=== PATIENT | male | born 1940 | race African-American/Black ===

== ENCOUNTER 2020-03-16 19:39 | Inpatient (IN) | payer BC, SELFPAY ==
[~2020-03-16] VITALS: Ht 172.7 cm; Wt 71.3 kg
[2020-03-16 19:40] VITALS: BP_SYST 100
[2020-03-16] MEDS ORDERED: NACL 0.9% 1,000 ML IV ONE (20:15)
[2020-03-16 20:38] LABS: MEAN CORPUSCULAR HEMOGLOBIN 29 pg (27-31); MEAN CORPUSCULAR HGB CONC 34 % (32-36); MEAN CORPUSCULAR VOLUME 85 fL (79.0-98.0); PLATELET COUNT (AUTO) 196 K/uL (130-430); RED BLOOD CELL COUNT(AUTO) 2.28 MIL/uL (4.2-6.2); RED CELL DISTRIBUTION WIDTH 19.9 % (9.0-15.0)
[2020-03-16 20:44] LABS: BILIRUBIN,URINE NEGATIVE (NEGATIVE); BLOOD, URINE NEGATIVE (NEGATIVE); CLARITY/URINE CLEAR (CLEAR); COLOR,URINE YELLOW (YELLOW); GLUCOSE,URINE NEGATIVE (NEGATIVE); KETONES,URINE NEGATIVE (NEGATIVE); LEUKOCYTE ESTERASE ,URINE NEGATIVE (NEGATIVE); NITRITE, URINE NEGATIVE (NEGATIVE); PROTEIN URINE NEGATIVE (NEGATIVE)
[2020-03-16 20:46] LABS: ANION GAP 10 (5-15); CHLORIDE 91 mmol/L (98-107); CREATININE 2.24 mg/dL (0.55-1.30); GLUCOSE 163 mg/dL (70-99); POTASSIUM 3.1 mmol/L (3.5-5.1); SODIUM SERUM 130 mmol/L (136-145); UREA NITROGEN, BLOOD 63 mg/dL (8-21)
[2020-03-16 20:53] LABS: HEMATOCRIT 19.3 % (36-54); HEMOGLOBIN 6.5 g/dL (14.0-18.0)
[2020-03-16 20:55] LABS: ALANINE AMINOTRANSFERASE 12 U/L (12-78); ALBUMIN 3.1 g/dL (3.4-4.8); ASPARTATE AMINOTRANSFERASE 18 U/L (10-37); TOTAL BILIRUBIN 0.5 mg/dL (0.0-1.0)
[2020-03-16] MEDS ORDERED: PANTOPRAZOLE SODIUM 40 MG/VIAL (PROTONIX) IVP ONE (21:00)
[2020-03-16 21:02] LABS: BAND % (MANUAL) 0 % (0-6); BASOPHILS % (MANUAL) 0 % (0-2); EOSINOPHILS % (MANUAL) 0 % (0-7); LYMPHOCYTES % (MANUAL) 19 % (20-46); MONOCYTES % (MANUAL) 14 % (0-11)
[2020-03-16 21:14] LABS: INR 1.2 (0.80-1.20); PROTHROMBIN TIME 11.9 SECS (9.5-12.5)
[2020-03-16] MEDS ORDERED: POTASSIUM CHLORIDE 20 MEQ/PKT PACKET PO ONE (21:15)
[2020-03-16] MEDS ORDERED: ISO10 PO (22:00)
[2020-03-16] MEDS ORDERED: CLOP75TA32 PO (22:00)
[2020-03-16] MEDS ORDERED: FOLI-43 PO (22:00)
[2020-03-16] MEDS ORDERED: FURO-149 PO (22:00)
[2020-03-16] MEDS ORDERED: METO2.5T6 PO (22:00)
[2020-03-16] MEDS ORDERED: TIMO5DRO15 EACH EYE (22:00)
[2020-03-16] MEDS ORDERED: POTA20TA83 PO (22:00)
[2020-03-16] MEDS ORDERED: ATOR10TA68 PO (22:00)
[2020-03-16] MEDS ORDERED: INSULIN REGULAR, HUMAN 100 UNITS/ML, 10 ML VIAL (humuLIN R) SUBCUT PRN (22:15)
[2020-03-16 23:22] VITALS: BP_SYST 102
[2020-03-16] MEDS: KCL 20 mEq in D5/0.45NS 1000mL 1,000 ML IV SCH (23:48)
[2020-03-17] VITALS (7 sets, daily range): BP systolic 94–114
[2020-03-17 06:24] LABS: BASOPHILS % (AUTO) 0.6 % (0.0-2.0); EOSINOPHILS # (AUTO) 0.1 K/uL (0.0-0.4); EOSINOPHILS % (AUTO) 1.5 % (0.0-4.0); HEMATOCRIT 24.3 % (36-54); LYMPHOCYTES # (AUTO) 0.5 K/uL (1.0-5.5); LYMPHOCYTES % (AUTO) 13.4 % (20.5-51.5); MEAN CORPUSCULAR HEMOGLOBIN 28 pg (27-31); MEAN CORPUSCULAR HGB CONC 33 % (32-36); MEAN CORPUSCULAR VOLUME 86 fL (79.0-98.0); MONOCYTES # (AUTO) 0.7 K/uL (0.0-1.0); MONOCYTES % (AUTO) 19.7 % (1.7-9.3); NEUTROPHILS # (AUTO) 2.2 K/uL (1.8-7.7); NEUTROPHILS % (AUTO) 64.8 % (40.0-70.0); PLATELET COUNT (AUTO) 192 K/uL (130-430); RED BLOOD CELL COUNT(AUTO) 2.82 MIL/uL (4.2-6.2); RED CELL DISTRIBUTION WIDTH 19.3 % (9.0-15.0); WHITE BLOOD COUNT (AUTO) 3.5 K/uL (4.8-10.8)
[2020-03-17 07:12] LABS: ALANINE AMINOTRANSFERASE 12 U/L (12-78); ALBUMIN 2.8 g/dL (3.4-4.8); ANION GAP 8 (5-15); ASPARTATE AMINOTRANSFERASE 20 U/L (10-37); CALCIUM 8.6 mg/dL (8.4-11.0); CHLORIDE 97 mmol/L (98-107); GLUCOSE 118 mg/dL (70-99); POTASSIUM 3.3 mmol/L (3.5-5.1); SODIUM SERUM 136 mmol/L (136-145); TOTAL BILIRUBIN 0.6 mg/dL (0.0-1.0); UREA NITROGEN, BLOOD 58 mg/dL (8-21)
[2020-03-17] MEDS: KCL 20 mEq in D5/0.45NS 1000mL 1,000 ML IV SCH (16:10)
[2020-03-17] MEDS ORDERED: ATORVASTATIN 10 MG TABLET PO SCH (21:15)
[2020-03-18 01:05] VITALS: BP_SYST 103
[2020-03-18 05:10] VITALS: BP_SYST 104
[2020-03-18 06:48] LABS: BASOPHILS % (AUTO) 0.6 % (0.0-2.0); EOSINOPHILS # (AUTO) 0.1 K/uL (0.0-0.4); EOSINOPHILS % (AUTO) 2.5 % (0.0-4.0); HEMATOCRIT 25.6 % (36-54); HEMOGLOBIN 8.4 g/dL (14.0-18.0); LYMPHOCYTES # (AUTO) 0.4 K/uL (1.0-5.5); LYMPHOCYTES % (AUTO) 12.7 % (20.5-51.5); MEAN CORPUSCULAR HEMOGLOBIN 29 pg (27-31); MEAN CORPUSCULAR HGB CONC 33 % (32-36); MEAN CORPUSCULAR VOLUME 87 fL (79.0-98.0); MONOCYTES # (AUTO) 0.4 K/uL (0.0-1.0); MONOCYTES % (AUTO) 12.2 % (1.7-9.3); NEUTROPHILS # (AUTO) 2.4 K/uL (1.8-7.7); PLATELET COUNT (AUTO) 189 K/uL (130-430); RED BLOOD CELL COUNT(AUTO) 2.95 MIL/uL (4.2-6.2); RED CELL DISTRIBUTION WIDTH 18.4 % (9.0-15.0); WHITE BLOOD COUNT (AUTO) 3.4 K/uL (4.8-10.8)
[2020-03-18 07:12] LABS: CALCIUM 8.7 mg/dL (8.4-11.0); CHLORIDE 100 mmol/L (98-107); CREATININE 1.28 mg/dL (0.55-1.30); GLUCOSE 94 mg/dL (70-99); POTASSIUM 3.3 mmol/L (3.5-5.1); SODIUM SERUM 136 mmol/L (136-145); UREA NITROGEN, BLOOD 35 mg/dL (8-21)
[2020-03-18 07:45] LABS: ANION GAP 8 (5-15)
[2020-03-18 08:05] VITALS: BP_SYST 112
[2020-03-18 08:05] LABS: TOTAL IRON BIND. CAPACITY 313 ug/dL (250-450)
[2020-03-18] MEDS ORDERED: POTASSIUM CHLORIDE 20 MEQ TAB.PRT.SR PO SCH (09:00)
[2020-03-18] MEDS ORDERED: FUROSEMIDE 40 MG TABLET PO SCH (09:00)
[2020-03-18] MEDS ORDERED: FOLIC ACID 1 MG TABLET PO SCH (09:00)
[2020-03-18] MEDS ORDERED: CLOPIDOGREL BISULFATE 75 MG TABLET PO SCH (09:00)
[2020-03-18] MEDS ORDERED: metOLazone 2.5 MG TABLET PO SCH (09:00)
[2020-03-18] MEDS ORDERED: TIMOLOL MALEATE 0.25% OPHTHALMIC DROPS 5 ML OP SCH (09:00)
[2020-03-18] MEDS ORDERED: ISOSORBIDE DINITRATE 10 MG TABLET (ISORDIL) PO SCH (09:00)
[2020-03-18 11:31] VITALS: BP_SYST 141
[2020-03-18 15:31] VITALS: BP_SYST 106
[2020-03-18 17:54] VITALS: BP_SYST 106
[2020-03-18] MEDS ORDERED: POTASSIUM CHLORIDE 20 MEQ TAB.PRT.SR PO ONE (18:00)
[2020-03-19 07:06] LABS: FERRITIN 53 ng/mL (30-400); FOLATE (FOLIC ACID) >20.0 ng/mL (>3.0)
== END 2020-03-18 20:40 | disposition home or self-care (01) | DRG 812 ==
LOC: SED 19:39 → STU 22:13
PROVIDERS: ADMIT Family Medicine; ATTEND Family Medicine
PROC: 30233N1 Transfusion of Nonautologous Red Blood Cells into Peripheral Vein, Percutaneous Approach (ICD-10-PCS; principal; 2020-03-17)
DX: D64.9 Anemia, unspecified (principal); E44.0 Moderate protein-calorie malnutrition; R18.8 Other ascites; I13.0 Hypertensive heart and chronic kidney disease with heart failure and stage 1 through stage 4 chronic kidney disease, or unspecified chronic kidney disease; I50.22 Chronic systolic (congestive) heart failure; I25.10 Atherosclerotic heart disease of native coronary artery without angina pectoris; N40.0 Benign prostatic hyperplasia without lower urinary tract symptoms; N18.9 Chronic kidney disease, unspecified; E11.22 Type 2 diabetes mellitus with diabetic chronic kidney disease; Z20.828 Contact with and (suspected) exposure to other viral communicable diseases; K29.50 Unspecified chronic gastritis without bleeding; Z95.0 Presence of cardiac pacemaker; Z95.1 Presence of aortocoronary bypass graft; Z68.23 Body mass index [BMI] 23.0-23.9, adult
CPT/HCPCS: 36415; 36430; 70450-TC; 71045; 76700-TC; 80048; 80053; 81003; 82607; 82728; 82746; 82962; 83540-TC; 83550-TC; 83735-TC; 83880; 84484; 85007; 85025; 85027; 85610-TC; 86886; 86900; 86901; 86920; 93005; 96361; 96374; 99291; C9113; G0378; J1815; J7050; P9021

== ENCOUNTER 2021-12-04 18:05 | Inpatient (IN) | payer BC ==
[~2021-12-04] VITALS: Ht 172.7 cm; Wt 56.4 kg
[~2021-12-04 18:05] MED LIST: ATOR10TA68 PO; CLOP75TA32 PO; FOLI-43 PO; FURO-149 PO; ISO10 PO; METO2.5T6 PO; POTA-197 PO; TIMO5DRO15 EACH EYE
[2021-12-04 18:09] VITALS: BP_SYST 115
--- NOTE | 2021-12-04 18:14 | NUR ---
PT TRIAGED AND ACCOMPANIED BY AMBULANCE EMT'SJASPAL FROM DRIVING TO HOSPITAL FOR CP LEFT SIDED NON-RADIATING, GIVEN ASA 324MG PO EN ROUTE, NO APPARANT DISTRESS ON ARRIVAL. VSS
[2021-12-04] MEDS ORDERED: NITROGLYCERIN 1 INCH (GM) OINT. TD ONE (18:45)
[2021-12-04] MEDS ORDERED: NITROGLYCERIN 0.4 MG TAB.SUBL SL ONE ×2 (18:45→22:06)
[2021-12-04 19:07] LABS: MEAN CORPUSCULAR HEMOGLOBIN 23 pg (27-31); MEAN CORPUSCULAR HGB CONC 32 % (32-36); MEAN CORPUSCULAR VOLUME 72 fL (79.0-98.0); PLATELET COUNT (AUTO) 148 K/uL (130-430); RED BLOOD CELL COUNT(AUTO) 2.95 MIL/uL (4.2-6.2); RED CELL DISTRIBUTION WIDTH 20.2 % (9.0-15.0)
[2021-12-04 19:23] LABS: HEMOGLOBIN 6.8 g/dL (14.0-18.0)
[2021-12-04 19:24] LABS: HEMATOCRIT 21.3 % (36-54)
[2021-12-04 19:52] LABS: ANION GAP 7 (5-15); CALCIUM 8.7 mg/dL (8.4-11.0); CHLORIDE 94 mmol/L (98-107); CREATININE 1.68 mg/dL (0.55-1.30); GLUCOSE 107 mg/dL (70-99); POTASSIUM 3.1 mmol/L (3.5-5.1); SODIUM SERUM 131 mmol/L (136-145); UREA NITROGEN, BLOOD 53 mg/dL (8-21)
[2021-12-04 20:02] LABS: ALANINE AMINOTRANSFERASE 19 U/L (12-78); ALBUMIN 2.5 g/dL (3.4-4.8); ASPARTATE AMINOTRANSFERASE 32 U/L (10-37); TOTAL BILIRUBIN 0.6 mg/dL (0.0-1.0)
[2021-12-04 20:39] LABS: INR 1.3 (0.80-1.20); PROTHROMBIN TIME 12.5 SECS (9.5-12.5)
[2021-12-04] MEDS ORDERED: NITROGLYCERIN 1 INCH (GM) OINT. ONE (22:07)
--- NOTE | 2021-12-04 22:18 | NUR ---
Nitroglycerin order held due to SBP of 105 and HR 60 at this time. Pt denies any active chest pain at this moment.
[2021-12-04 22:19] LABS: BAND % (MANUAL) 12 % (0-6); LYMPHOCYTES % (MANUAL) 19 % (20-46)
[2021-12-04 22:20] LABS: ATYPICAL LYMPHOCYTES % 6 % (0-0); BASOPHILS % (MANUAL) 0 % (0-2); EOSINOPHILS % (MANUAL) 4 % (0-7); MONOCYTES % (MANUAL) 7 % (0-11)
--- NOTE | 2021-12-04 22:25 | NUR ---
Pt placed in room 2. Connected to monitor. Denies any chest pain at this time.
[2021-12-04] MEDS ORDERED: PANTOPRAZOLE SODIUM 80 MG in NS 100 ML IVP ONE (22:30)
[2021-12-04] MEDS ORDERED: HYDROcodone/ACETAMIN 10-325 MG TAB PO ONE (22:30)
--- NOTE | 2021-12-04 22:30 | NUR ---
# 20 gauge angiocath placed to R FOREARM. Use of asceptic technique. Opsite placed over site. Blood return noted. Flushed with 10 cc of normal saline. No evidence of infiltration noted. Patient tolerated well.
--- NOTE | 2021-12-04 22:41 | NUR ---
Admit bed requested Patient will be admitted to care of Dr. Curry. Admitted to Tele unit. Diagnosis: GI BLEED Inpatient (Yes or No) Y Observation (Yes or No) Y Orientation concerns or request close to nursing station (Yes or No) N Covid Status: From Home (Yes or if No enter name of facility): [facility] Med Rec Completed (Yes of No): UTO
[2021-12-04] MEDS ORDERED: ONDANSETRON HCL 4 MG/2 ML VIAL IVP PRN (22:45)
[2021-12-04] MEDS ORDERED: KCL 20 mEq in NS 1000 mL 1,000 ML IV ONE (22:45)
[2021-12-04] MEDS ORDERED: PANTOPRAZOLE SODIUM 40 MG/VIAL (PROTONIX) ONE (23:06)
[2021-12-05] MEDS ORDERED: PANTOPRAZOLE SODIUM 40 MG/VIAL (PROTONIX) ONE ×3 (00:31→20:26)
[2021-12-05] MEDS: PANTOPRAZOLE SODIUM 40 MG in NS 50 ML IV SCH ×6 (00:31→20:40)
--- NOTE | 2021-12-05 01:00 | NUR ---
Patient will be admitted to care of MD Marion. Admitted to TELE unit. Will go to room 114A. Complete and up to date summary report printed. SBAR report given at bedside to receiving CORRY Johansen with opportunity for questions. at bedside during admit.
[2021-12-05] MEDS ORDERED: KCL 20 mEq in NS 1000 mL 1,000 ML IV ONE (01:01)
[2021-12-05 01:08] VITALS: BP_SYST 83; BP_SYST 92
--- NOTE | 2021-12-05 01:08 | NUR ---
ADMISSION: The patient, PIYUSH OROPEZA, 81 y/o, M admitted by ANNIKA STREET MD, was given written information regarding hospital policies, unit procedures and contact persons. Valuables were checked and DOCUMENTED.
--- NOTE | 2021-12-05 02:16 | NUR ---
INITIAL NOTE AT INITIAL ASSESSMENT, PATIENT IS RESTING IN BED, STABLE, NO SIGNS OF RESPIRATORY DISTRESS. PATIENT VERBALIZES NO PAIN. IS AT BEDSIDE. PLAN OF CARE FOR THE EVENING IS COMMUNICATED WITH THE PATIENT AND HIS AT BEDSIDE. PATIENT DEMONSTRATES BACK CORRECT USAGE OF CALL LIGHT AT THIS TIME. BED IS LOCKED, ALARMED, AND AT THE LOWEST LEVEL. FALL AND SAFETY PRECAUTIONS WILL BE IN PLACE THROUGHOUT THE SHIFT.
--- NOTE | 2021-12-05 03:41 | NUR ---
CONSULTATION PAGED/CALLED Reason for Consultation: GI BLEED Person Who was Notified: FALLON Consulting Physician: DR.SHARMA SARMIENTO FOR [facility] Specialty: GI Ordering Physician:
--- NOTE | 2021-12-05 04:50 | NUR ---
BT INITIATION: Consent signed per PATIENT'S (DUE TO PATIENT'S IMPAIRED VISION, UNABLE TO SIGN) agreeing to administration of blood. Blood has been type and crossmatched. Blood sent from blood bank. Information on unit of blood checked against patient wristband at bedside by two nurses. All information matches. Patient or responsible green party informed of potential complications associated with blood transfusion. Informed of possible transfusion reaction symptoms. Aware of need to notify nurse at once of itching, shortness of breath, flushing, feeling of impending doom, or other symptoms not previously present. Vital signs taken within 5 minutes prior to initiation of transfusion. RN will remain with patient for first 15 minutes of transfusion at which time vital signs will be re-assessed.
--- NOTE | 2021-12-05 06:40 | NUR ---
PATIENT REFUSING SECOND BLOOD TRANSFUSION UNTIL 1 DAY FROM TRANSFUSION PATIENT VERBALIZES HE GETS "SCROTAL EDEMA AND FLUID OVERLOAD" IF HE GETS MORE THAN ONE BLOOD TRANSFUSION WITHIN A DAY, HE IS REQUESTING TO HAVE HIS NEXT BLOOD TRANSFUSION AFTER 24 HOURS. WILL ENDORSE TO AM NURSE. BLOOD BANK HAS VERIFIED THAT BLOOD WILL NOT UNTIL 12/11/21.
--- NOTE | 2021-12-05 06:45 | NUR ---
CLOSING NOTE PATIENT TOLERATED BLOOD TRANSFUSION WELL. HE SLEPT WELL, NO CHEST PAIN OR PALPITATIONS NOTED. AT THIS TIME, HE IS RESTING IN BED, STABLE, NO SIGNS OF RESPIRATORY DISTRESS. CALL LIGHT IS WITHIN REACH. BED IS LOCKED, ALARMED, AND AT THE LOWEST LEVEL. FALL AND SAFETY PRECAUTIONS HAVE BEEN IN PLACE THROUGHOUT THE SHIFT. WILL CONTINUE TO MONITOR UNTIL SHIFT REPORT IS GIVEN AT BEDSIDE TO AM NURSE.
[2021-12-05 07:25] VITALS: BP_SYST 101
[2021-12-05 09:28] LABS: BASOPHILS % (AUTO) 0.8 % (0.0-2.0); HEMATOCRIT 23.7 % (36-54); HEMOGLOBIN 7.7 g/dL (14.0-18.0); LYMPHOCYTES # (AUTO) 0.3 K/uL (1.0-5.5); LYMPHOCYTES % (AUTO) 17.7 % (20.5-51.5); MEAN CORPUSCULAR HEMOGLOBIN 24 pg (27-31); MEAN CORPUSCULAR HGB CONC 33 % (32-36); MEAN CORPUSCULAR VOLUME 75 fL (79.0-98.0); MONOCYTES # (AUTO) 0.3 K/uL (0.0-1.0); MONOCYTES % (AUTO) 18.6 % (1.7-9.3); PLATELET COUNT (AUTO) 147 K/uL (130-430); RED BLOOD CELL COUNT(AUTO) 3.18 MIL/uL (4.2-6.2); RED CELL DISTRIBUTION WIDTH 21.8 % (9.0-15.0)
[2021-12-05 09:41] LABS: ANION GAP 6 (5-15); CALCIUM 8.4 mg/dL (8.4-11.0); CHLORIDE 98 mmol/L (98-107); CREATININE 1.61 mg/dL (0.55-1.30); GLUCOSE 82 mg/dL (70-99); POTASSIUM 3.5 mmol/L (3.5-5.1); SODIUM SERUM 133 mmol/L (136-145); UREA NITROGEN, BLOOD 52 mg/dL (8-21)
[2021-12-05 11:25] LABS: WHITE BLOOD COUNT (AUTO) 1.7 K/uL (4.8-10.8)
[2021-12-05 11:27] LABS: NEUTROPHILS % (AUTO) 59.9 % (40.0-70.0)
[2021-12-05 12:00] VITALS: BP_SYST 100
[2021-12-05] MEDS ORDERED: CLOPIDOGREL BISULFATE 75 MG TABLET PO SCH (14:15)
[2021-12-05] MEDS ORDERED: ATORVASTATIN 10 MG TABLET PO ONE (14:45)
[2021-12-05] MEDS ORDERED: POTASSIUM CHLORIDE 10 MEQ TAB.PRT.SR PO ONE (14:45)
[2021-12-05] MEDS ORDERED: FOLIC ACID 1 MG TABLET PO ONE (14:45)
[2021-12-05] MEDS ORDERED: ISOSORBIDE DINITRATE 10 MG TABLET (ISORDIL) PO ONE (14:45)
--- NOTE | 2021-12-05 14:45 | NUR ---
CONSULTATION PAGED/CALLED Reason for Consultation: [] CP Person Who was Notified: [] MARLENI Consulting Physician: [] DR ROTHMAN Brass And Wind Instrument Repairer Specialty: [] CARDIO Ordering Physician: [] DR TOBAR
--- NOTE | 2021-12-05 14:50 | NUR ---
CONSULTATION PAGED/CALLED Reason for Consultation: [] LOW H AND H AND WBC Person Who was Notified: [] TORIN Consulting Physician: [] SHANE YIN Hr Assistant Specialty: [] ONCO/CHEMA Ordering Physician: [] DR STREET
[2021-12-05] MEDS: TIMOLOL MALEATE 0.5% OPHTHALMIC DROPS 5 ML EACH EYE SCH ×2 (15:51→20:49)
[2021-12-05 16:00] VITALS: BP_SYST 96
[2021-12-05 17:57] LABS: TOTAL IRON BIND. CAPACITY 265 ug/dL (250-450)
[2021-12-05 20:00] VITALS: BP_SYST 98
--- NOTE | 2021-12-05 20:00 | NUR ---
OPENING NOTE PATIENT IS IN BED WITH AT BEDSIDE. PT HAS NO SIGNS OF RESPIRATORY DISTRESS. PT HAS IV IN THE LEFT F/A PATENT WITH MEDICATION INFUSING. PATIENT ABLE TO VERBALIZES HE HAS NO PAIN AT THIS TIME. PT AOX4 BUT NEWTOK AND DECREASED VISION. PLAN OF CARE FOR TOMORROW EXPLAINED TO THE PATIENT AND HIS . PATIENT DEMONSTRATES BACK CORRECT USAGE OF CALL LIGHT AT THIS TIME. PT'S BED IS LOCKED, ALARMED, AND AT THE LOWEST LEVEL. ALL SAFETY PRECAUTIONS ARE IN PLACE.
--- NOTE | 2021-12-05 20:30 | NUR ---
PT CONCERN ABOUT LASIX AT BEDSIDE EXPLAINED PT IS ONLY GETTING 1 HNIT OF BLOOD AT A TIME AND THE MD MAY NOT ORDER THE LASIX WITH THE BLOOD TRANSFUSIONS. ENCOURAGED TP TO TALK WITH MD TODAY WHEN HE COMPLETES HIS ROUNDS
[2021-12-05] MEDS: FUROSEMIDE 40 MG TABLET PO SCH (20:46)
--- NOTE | 2021-12-05 21:00 | NUR ---
DIET PT STILL HAS A NPO ORDER. WAS CONCERN PRT WAS GIVNE COFFEE AND NPO AGAIN AT MIDNIGHT. WILL PASS ON TO DISCUSS WITH
[2021-12-06 01:20] VITALS: BP_SYST 92
[2021-12-06 04:00] VITALS: BP_SYST 98
[2021-12-06] MEDS ORDERED: PANTOPRAZOLE SODIUM 40 MG/VIAL (PROTONIX) ONE (04:36)
[2021-12-06] MEDS: PANTOPRAZOLE SODIUM 40 MG in NS 50 ML IV SCH (04:47)
--- NOTE | 2021-12-06 05:00 | NUR ---
BATH PT REFUSED HIS BATH IN THE EVENING AND AGAIN THIS AM STATED HE IS TO COLD RIGHT KNOW. STATES HIS WILL BATH HIM WHEN SHE ARRIVES
[2021-12-06 05:12] LABS: BASOPHILS % (AUTO) 0.7 % (0.0-2.0); EOSINOPHILS # (AUTO) 0.1 K/uL (0.0-0.4); EOSINOPHILS % (AUTO) 2.7 % (0.0-4.0); HEMATOCRIT 23.9 % (36-54); HEMOGLOBIN 7.8 g/dL (14.0-18.0); LYMPHOCYTES # (AUTO) 0.3 K/uL (1.0-5.5); LYMPHOCYTES % (AUTO) 17.1 % (20.5-51.5); MEAN CORPUSCULAR HEMOGLOBIN 24 pg (27-31); MEAN CORPUSCULAR HGB CONC 33 % (32-36); MEAN CORPUSCULAR VOLUME 75 fL (79.0-98.0); MONOCYTES # (AUTO) 0.4 K/uL (0.0-1.0); MONOCYTES % (AUTO) 19.8 % (1.7-9.3); NEUTROPHILS # (AUTO) 1.2 K/uL (1.8-7.7); NEUTROPHILS % (AUTO) 59.7 % (40.0-70.0); PLATELET COUNT (AUTO) 150 K/uL (130-430); RED BLOOD CELL COUNT(AUTO) 3.18 MIL/uL (4.2-6.2); RED CELL DISTRIBUTION WIDTH 21.7 % (9.0-15.0)
[2021-12-06 05:51] LABS: ALANINE AMINOTRANSFERASE 23 U/L (12-78); ALBUMIN 2.2 g/dL (3.4-4.8); ANION GAP 7 (5-15); ASPARTATE AMINOTRANSFERASE 35 U/L (10-37); CALCIUM 8.4 mg/dL (8.4-11.0); CHLORIDE 100 mmol/L (98-107); CREATININE 1.68 mg/dL (0.55-1.30); GLUCOSE 87 mg/dL (70-99); LIPASE 183 U/L (73-393); POTASSIUM 3.5 mmol/L (3.5-5.1); SODIUM SERUM 135 mmol/L (136-145); THYROID STIMULATING HORMONE 1.78 uIu/mL (0.36-3.74); TOTAL BILIRUBIN 0.6 mg/dL (0.0-1.0); UREA NITROGEN, BLOOD 45 mg/dL (8-21)
[2021-12-06 08:00] VITALS: BP_SYST 121
[2021-12-06] MEDS ORDERED: ATORVASTATIN 10 MG TABLET PO SCH (09:00)
[2021-12-06 09:08] LABS: CHOLESTEROL 81 mg/dL (<200); HDL CHOLESTEROL 29 mg/dL (>45); LDL CHOLESTEROL 51 mg/dL (<100); TRIGLYCERIDES 36 mg/dL (30-150)
[2021-12-06] MEDS: FUROSEMIDE 40 MG TABLET PO SCH ×2 (10:39→21:11)
[2021-12-06] MEDS: POTASSIUM CHLORIDE 10 MEQ TAB.PRT.SR PO SCH (10:40)
[2021-12-06] MEDS: ISOSORBIDE DINITRATE 10 MG TABLET (ISORDIL) PO SCH (10:40)
[2021-12-06] MEDS: metOLazone 2.5 MG TABLET PO SCH (10:40)
[2021-12-06] MEDS: TIMOLOL MALEATE 0.5% OPHTHALMIC DROPS 5 ML EACH EYE SCH ×2 (10:41→21:12)
[2021-12-06] MEDS: FOLIC ACID 1 MG TABLET PO SCH (10:41)
[2021-12-06 12:30] VITALS: BP_SYST 104
[2021-12-06 16:34] VITALS: BP_SYST 116
[2021-12-06 20:00] VITALS: BP_SYST 112
--- NOTE | 2021-12-06 20:00 | NUR ---
RECIEVED PT FROM AM SHIFT. PATIENT IS RESTING IN BED, STABLE, NO SIGNS OF RESPIRATORY DISTRESS. PATIENT VERBALIZES NO PAIN AND THAT HE IS HUNGRY. PT HAD A US DONE, AND IS SCHEDULED FOR A PARACENTHESIS ON ThursdayNovember, PATIENT DEMONSTRATES BACK CORRECT USAGE OF CALL LIGHT AT THIS TIME. BED IS LOCKED, ALARMED, AND AT THE LOWEST LEVEL. FALL AND SAFETY PRECAUTIONS WILL BE IN PLACE THROUGHOUT THE SHIFT.
[2021-12-06] MEDS: ATORVASTATIN 10 MG TABLET PO SCH (21:11)
[2021-12-06] MEDS: PANTOPRAZOLE SODIUM 40 MG/VIAL (PROTONIX) IVP SCH (21:11)
[2021-12-07 00:17] VITALS: BP_SYST 139
--- NOTE | 2021-12-07 03:51 | NUR ---
PT SCHEDULED FOR PARACENTHESIS AND EEG TODAY. CONSCENT SIGHT FOR PARACENTHESIS. WILL ENDORSE TO PM NURSE.
[2021-12-07 06:56] LABS: BASOPHILS % (AUTO) 0.7 % (0.0-2.0); EOSINOPHILS # (AUTO) 0.1 K/uL (0.0-0.4); EOSINOPHILS % (AUTO) 3.1 % (0.0-4.0); HEMATOCRIT 24.5 % (36-54); LYMPHOCYTES # (AUTO) 0.4 K/uL (1.0-5.5); LYMPHOCYTES % (AUTO) 18.9 % (20.5-51.5); MEAN CORPUSCULAR HEMOGLOBIN 24 pg (27-31); MEAN CORPUSCULAR HGB CONC 33 % (32-36); MEAN CORPUSCULAR VOLUME 74 fL (79.0-98.0); MONOCYTES # (AUTO) 0.3 K/uL (0.0-1.0); NEUTROPHILS # (AUTO) 1.2 K/uL (1.8-7.7); NEUTROPHILS % (AUTO) 60.3 % (40.0-70.0); PLATELET COUNT (AUTO) 167 K/uL (130-430); RED CELL DISTRIBUTION WIDTH 21.4 % (9.0-15.0)
[2021-12-07 08:00] VITALS: BP_SYST 122
[2021-12-07 08:01] LABS: ALANINE AMINOTRANSFERASE 22 U/L (12-78); ALBUMIN 2.3 g/dL (3.4-4.8); ANION GAP 8 (5-15); ASPARTATE AMINOTRANSFERASE 28 U/L (10-37); CHLORIDE 98 mmol/L (98-107); CREATININE 1.58 mg/dL (0.55-1.30); GLUCOSE 77 mg/dL (70-99); POTASSIUM 3.3 mmol/L (3.5-5.1); SODIUM SERUM 135 mmol/L (136-145); TOTAL BILIRUBIN 0.7 mg/dL (0.0-1.0); UREA NITROGEN, BLOOD 42 mg/dL (8-21)
[2021-12-07 08:06] LABS: HEPATITIS A AB, IgM Negative (Negative); HEPATITIS B CORE AB, IgM Negative (Negative); HEPATITIS B SURFACE AG Negative (Negative)
[2021-12-07] MEDS: PANTOPRAZOLE SODIUM 40 MG/VIAL (PROTONIX) IVP SCH ×2 (08:52→21:57)
[2021-12-07] MEDS: metOLazone 2.5 MG TABLET PO SCH (08:53)
[2021-12-07] MEDS: FOLIC ACID 1 MG TABLET PO SCH (08:54)
[2021-12-07] MEDS: ISOSORBIDE DINITRATE 10 MG TABLET (ISORDIL) PO SCH (08:54)
[2021-12-07] MEDS: FUROSEMIDE 40 MG TABLET PO SCH ×2 (08:54→21:57)
[2021-12-07] MEDS: TIMOLOL MALEATE 0.5% OPHTHALMIC DROPS 5 ML EACH EYE SCH ×2 (09:25→21:58)
[2021-12-07] MEDS: POTASSIUM CHLORIDE 10 MEQ TAB.PRT.SR PO SCH (09:29)
[2021-12-07 11:59] VITALS: BP_SYST 145
[2021-12-07] MEDS ORDERED: EPOETIN ALFA-EPBX 4,000 UNITS/ML VIAL SUBCUT ONE (14:00)
[2021-12-07] MEDS: SOD FERRIC GLUC COMPLEX/SUC 125 MG in NS 100 ML IV SCH (15:00)
[2021-12-07 15:32] VITALS: BP_SYST 125
--- NOTE | 2021-12-07 18:06 | NUR ---
Shift Summary: patient is AAOX4. vitals are stable. patient and informed that paracentesis will be likely done on Thursday per primary team. bedside today and updated with treatment plan. patient and state they do not have any questions or concerns during shift. informed patient that stool sample is needed and to let staff know if he needs to have a BM. will endorse to on coming nurse. call light within reach. bed set on low and locked.
[2021-12-07 21:10] VITALS: BP_SYST 109
[2021-12-07] MEDS: ATORVASTATIN 10 MG TABLET PO SCH (21:57)
[2021-12-07 22:24] LABS: BILIRUBIN,URINE NEGATIVE (NEGATIVE); BLOOD, URINE NEGATIVE (NEGATIVE); CLARITY/URINE CLEAR (CLEAR); COLOR,URINE YELLOW (YELLOW); GLUCOSE,URINE NEGATIVE (NEGATIVE); KETONES,URINE NEGATIVE (NEGATIVE); LEUKOCYTE ESTERASE ,URINE NEGATIVE (NEGATIVE); NITRITE, URINE NEGATIVE (NEGATIVE); PH,URINE 6.5 (5.0-8.0); PROTEIN URINE NEGATIVE (NEGATIVE); UROBILINOGEN,URINE 0.2 (0.2-1.0)
[2021-12-08 00:49] VITALS: BP_SYST 120
[2021-12-08 07:08] LABS: INR 1.7 (0.80-1.20); PROTHROMBIN TIME 16.9 SECS (9.5-12.5)
[2021-12-08 08:00] VITALS: BP_SYST 123
[2021-12-08 08:13] LABS: BASOPHILS % (AUTO) 0.9 % (0.0-2.0); EOSINOPHILS # (AUTO) 0.1 K/uL (0.0-0.4); EOSINOPHILS % (AUTO) 2.7 % (0.0-4.0); HEMATOCRIT 24.2 % (36-54); HEMOGLOBIN 7.9 g/dL (14.0-18.0); LYMPHOCYTES # (AUTO) 0.4 K/uL (1.0-5.5); LYMPHOCYTES % (AUTO) 19.4 % (20.5-51.5); MEAN CORPUSCULAR HEMOGLOBIN 25 pg (27-31); MEAN CORPUSCULAR HGB CONC 33 % (32-36); MEAN CORPUSCULAR VOLUME 75 fL (79.0-98.0); MONOCYTES # (AUTO) 0.4 K/uL (0.0-1.0); MONOCYTES % (AUTO) 18.8 % (1.7-9.3); NEUTROPHILS # (AUTO) 1.2 K/uL (1.8-7.7); NEUTROPHILS % (AUTO) 58.2 % (40.0-70.0); PLATELET COUNT (AUTO) 170 K/uL (130-430); RED BLOOD CELL COUNT(AUTO) 3.24 MIL/uL (4.2-6.2); RED CELL DISTRIBUTION WIDTH 21.6 % (9.0-15.0)
[2021-12-08] MEDS: MULTIVITS,CA,MINERALS/IRON/FA 1 TABLET PO SCH (09:12)
[2021-12-08] MEDS: FOLIC ACID 1 MG TABLET PO SCH (09:12)
[2021-12-08] MEDS: metOLazone 2.5 MG TABLET PO SCH (09:13)
[2021-12-08] MEDS: FUROSEMIDE 40 MG TABLET PO SCH ×2 (09:13→20:39)
[2021-12-08] MEDS: POTASSIUM CHLORIDE 10 MEQ TAB.PRT.SR PO SCH (09:14)
[2021-12-08] MEDS: ISOSORBIDE DINITRATE 10 MG TABLET (ISORDIL) PO SCH (09:14)
[2021-12-08] MEDS: PANTOPRAZOLE SODIUM 40 MG/VIAL (PROTONIX) IVP SCH ×2 (09:14→20:39)
[2021-12-08 09:21] LABS: ALANINE AMINOTRANSFERASE 33 U/L (12-78); ALBUMIN 2.4 g/dL (3.4-4.8); ANION GAP 7 (5-15); ASPARTATE AMINOTRANSFERASE 54 U/L (10-37); CALCIUM 8.7 mg/dL (8.4-11.0); CHLORIDE 98 mmol/L (98-107); CREATININE 1.89 mg/dL (0.55-1.30); GLUCOSE 79 mg/dL (70-99); POTASSIUM 3.3 mmol/L (3.5-5.1); SODIUM SERUM 135 mmol/L (136-145); TOTAL BILIRUBIN 0.4 mg/dL (0.0-1.0); UREA NITROGEN, BLOOD 45 mg/dL (8-21)
[2021-12-08 10:29] LABS: WHITE BLOOD COUNT (AUTO) 2.1 K/uL (4.8-10.8)
[2021-12-08] MEDS: TIMOLOL MALEATE 0.5% OPHTHALMIC DROPS 5 ML EACH EYE SCH ×2 (10:45→20:39)
[2021-12-08 12:45] VITALS: BP_SYST 117
[2021-12-08] MEDS: SOD FERRIC GLUC COMPLEX/SUC 125 MG in NS 100 ML IV SCH (15:12)
[2021-12-08] MEDS ORDERED: POTASSIUM CHLORIDE 20 MEQ TAB.PRT.SR PO ONE (16:30)
[2021-12-08 16:37] VITALS: BP_SYST 153
--- NOTE | 2021-12-08 19:10 | NUR ---
RECEIVED BEDSIDE REPORT. PT IN BED RESTING AWAKE. HOB ELEVATED. FAMILY AT BEDSIDE. ALL QUESTIONS ANSWERED. BED RAILS UPX2. BED ALARM ON. CALL LIGHT WITHIN REACH. ALL NEEDS MEET AT THIS TIME.
--- NOTE | 2021-12-08 19:38 | NUR ---
late entry due to care 0800-pt stable . vitals stable. not in acute distress. res even and unlabored. eating breakfast. safety and fall precautions in place. call light within reach . needs attended 1000- due meds given a ordered. not in acute distress. 1530- pt stable notin acute distress.vitals stable. due meds given as ordered.seen by dr reno. 1930-pt stable . vitals stable. not in acute distress. res even and unlabored. . safety and fall precautions in place. call light within reach . at bedside. updated with poc. verbalized understanding. report given to vipul WHEATLEY
[2021-12-08 20:08] VITALS: BP_SYST 116
[2021-12-08] MEDS: ATORVASTATIN 10 MG TABLET PO SCH (20:39)
--- NOTE | 2021-12-09 00:05 | NUR ---
PT ASSISTED TO BEDSIDE COMMODE. PT HAD A BM. PT ASSISTED BACK TO BED. BED ALARM ON. CALL LIGHT WITHIN REACH. WILL CONTINUE TO MONITOR
[2021-12-09 01:11] VITALS: BP_SYST 121
--- NOTE | 2021-12-09 07:30 | NUR ---
RECEIVED PT FROM CORRY STROUD. ASSUMED CARE.
[2021-12-09 07:58] LABS: ALANINE AMINOTRANSFERASE 47 U/L (12-78); ALBUMIN 2.3 g/dL (3.4-4.8); ANION GAP 8 (5-15); ASPARTATE AMINOTRANSFERASE 63 U/L (10-37); CALCIUM 8.6 mg/dL (8.4-11.0); CHLORIDE 99 mmol/L (98-107); CREATININE 1.98 mg/dL (0.55-1.30); GLUCOSE 93 mg/dL (70-99); POTASSIUM 3.5 mmol/L (3.5-5.1); SODIUM SERUM 135 mmol/L (136-145); TOTAL BILIRUBIN 0.4 mg/dL (0.0-1.0); UREA NITROGEN, BLOOD 49 mg/dL (8-21)
[2021-12-09 08:00] VITALS: BP_SYST 106
[2021-12-09 08:45] LABS: BASOPHILS % (AUTO) 0.6 % (0.0-2.0); EOSINOPHILS % (AUTO) 1.8 % (0.0-4.0); HEMOGLOBIN 7.6 g/dL (14.0-18.0); LYMPHOCYTES # (AUTO) 0.4 K/uL (1.0-5.5); LYMPHOCYTES % (AUTO) 19.8 % (20.5-51.5); MEAN CORPUSCULAR HEMOGLOBIN 24 pg (27-31); MEAN CORPUSCULAR HGB CONC 32 % (32-36); MEAN CORPUSCULAR VOLUME 75 fL (79.0-98.0); MONOCYTES # (AUTO) 0.4 K/uL (0.0-1.0); MONOCYTES % (AUTO) 20.6 % (1.7-9.3); NEUTROPHILS # (AUTO) 1.2 K/uL (1.8-7.7); NEUTROPHILS % (AUTO) 57.2 % (40.0-70.0); PLATELET COUNT (AUTO) 158 K/uL (130-430); RED BLOOD CELL COUNT(AUTO) 3.19 MIL/uL (4.2-6.2); RED CELL DISTRIBUTION WIDTH 22.2 % (9.0-15.0); WHITE BLOOD COUNT (AUTO) 2.2 K/uL (4.8-10.8)
[2021-12-09] MEDS: TIMOLOL MALEATE 0.5% OPHTHALMIC DROPS 5 ML EACH EYE SCH ×2 (09:51→23:03)
[2021-12-09] MEDS: PANTOPRAZOLE SODIUM 40 MG/VIAL (PROTONIX) IVP SCH ×2 (09:51→23:02)
[2021-12-09] MEDS: FUROSEMIDE 40 MG TABLET PO SCH ×2 (09:52→23:02)
[2021-12-09] MEDS: MULTIVITS,CA,MINERALS/IRON/FA 1 TABLET PO SCH (09:52)
[2021-12-09] MEDS: ISOSORBIDE DINITRATE 10 MG TABLET (ISORDIL) PO SCH (09:52)
[2021-12-09] MEDS: POTASSIUM CHLORIDE 10 MEQ TAB.PRT.SR PO SCH (09:52)
--- NOTE | 2021-12-09 09:53 | NUR ---
SCHEDULED MEDS GIVEN AND TOLERATED WELL. PT RECEIVING PARACENTESIS AT THIS TIME.
[2021-12-09] MEDS: FOLIC ACID 1 MG TABLET PO SCH (10:40)
--- NOTE | 2021-12-09 11:30 | NUR ---
PARACENTESIS COMPLETED, VS WNL. RESP E/U. PARACENTESIS FLUID TAKEN TO LAB. PT DENIES PAIN.
[2021-12-09 12:00] VITALS: BP_SYST 125
--- NOTE | 2021-12-09 13:20 | NUR ---
Dietitian Recommendations * Continue w/ current Renal diet. Please refer to Nutrition Assessment for details. Addendum: 12/09/21 at [address] Amended: Links added.
[2021-12-09 15:09] LABS: FERRITIN 23 ng/mL (30-400)
[2021-12-09 15:50] LABS: SOURCE/TYPE ,BODY FLUID PARACENTESIS
[2021-12-09 15:51] LABS: BODY FLUID COLOR YELLOW (LT YELLOW); BODY FLUID TOTAL VOLUME 2050 mL
[2021-12-09 15:52] LABS: LYMPHOCYTES, BODY FLUID 100 %; RBC, BODY FLUID 54 /uL; WBC, BODY FLUID 11 /uL
[2021-12-09 15:54] LABS: APPEARANCE,SPUN,BODY FLUID TURBID (CLEAR)
[2021-12-09 15:55] LABS: BF APPEARANCE UNSPUN CLOUDY (CLEAR)
[2021-12-09 16:00] VITALS: BP_SYST 115
[2021-12-09] MEDS ORDERED: EPOETIN ALFA-EPBX 3,000 UNITS/ML VIAL SUBCUT SCH (17:00)
[2021-12-09] MEDS: SOD FERRIC GLUC COMPLEX/SUC 125 MG in NS 100 ML IV SCH (17:12)
--- NOTE | 2021-12-09 17:13 | NUR ---
RETACRIT SQ GIVEN TO RUQ. FERRITIN IVPB INITIATED. DENIES PAIN.
--- NOTE | 2021-12-09 19:10 | NUR ---
RECEIVED BEDSIDE REPORT. PT IN BED RESTING. FAMILY AT BEDSIDE. CALL LIGHT WITHIN REACH. BED ALARM ON. BED RAILS UPX2. ALL NEEDS MEET AT THIS TIME.
--- NOTE | 2021-12-09 19:25 | NUR ---
ENDORSED PT TO CORRY STROUD. ALL QUESTIONS AND CONCERNS ADDRESSED.
[2021-12-09 20:30] VITALS: BP_SYST 127
--- NOTE | 2021-12-09 21:00 | NUR ---
PT VITAL SIGNS STABLE. ASSISTED TO WITH URINAL. PT EDUCATED TO USE CALL LIGHT IF HE NEEDS TO STAND UP AND USE URINAL. PT REPOSITIONED AND GIVEN NEW BLANKETS. ALL OTHER NEEDS MEET AT THIS TIME. WILL CONTINUE TO MONITOR.
[2021-12-09 21:46] LABS: BODY FLUID GLUCOSE 144 mg/dL; BODY FLUID TOTAL PROTEIN 5.7 g/dL
[2021-12-09] MEDS: ATORVASTATIN 10 MG TABLET PO SCH (23:03)
[2021-12-10 04:00] VITALS: BP_SYST 131
[2021-12-10 06:49] LABS: BASOPHILS % (AUTO) 0.7 % (0.0-2.0); EOSINOPHILS % (AUTO) 1.1 % (0.0-4.0); HEMATOCRIT 24.4 % (36-54); LYMPHOCYTES # (AUTO) 0.4 K/uL (1.0-5.5); LYMPHOCYTES % (AUTO) 9.7 % (20.5-51.5); MEAN CORPUSCULAR HEMOGLOBIN 24 pg (27-31); MEAN CORPUSCULAR HGB CONC 33 % (32-36); MEAN CORPUSCULAR VOLUME 74 fL (79.0-98.0); MONOCYTES # (AUTO) 0.6 K/uL (0.0-1.0); MONOCYTES % (AUTO) 16.3 % (1.7-9.3); NEUTROPHILS # (AUTO) 2.9 K/uL (1.8-7.7); NEUTROPHILS % (AUTO) 72.2 % (40.0-70.0); PLATELET COUNT (AUTO) 161 K/uL (130-430); RED BLOOD CELL COUNT(AUTO) 3.28 MIL/uL (4.2-6.2); RED CELL DISTRIBUTION WIDTH 22.1 % (9.0-15.0); RETICULOCYTE COUNT 1.8 % (0.5-1.5)
[2021-12-10 06:51] LABS: ALANINE AMINOTRANSFERASE 39 U/L (12-78); ALBUMIN 2.3 g/dL (3.4-4.8); ANION GAP 8 (5-15); ASPARTATE AMINOTRANSFERASE 50 U/L (10-37); CALCIUM 8.6 mg/dL (8.4-11.0); CHLORIDE 96 mmol/L (98-107); CREATININE 1.84 mg/dL (0.55-1.30); GLUCOSE 97 mg/dL (70-99); PHOSPHORUS 2.9 mg/dL (2.7-4.5); POTASSIUM 3.4 mmol/L (3.5-5.1); SODIUM SERUM 131 mmol/L (136-145); TOTAL BILIRUBIN 0.5 mg/dL (0.0-1.0); UREA NITROGEN, BLOOD 49 mg/dL (8-21)
--- NOTE | 2021-12-10 07:37 | NUR ---
PHYSICAL THERAPY CO-SIGN The Physical Therapy Progress Notes documented by Refrigeration Mechanic have been reviewed. Reviewed/Co-Signed by: Leander Soler Documentation Done by: CLAY CASANOVA PTA Addendum: 12/10/21 at 0737 by Leander Soler PT Amended: Links added.
[2021-12-10 08:00] VITALS: BP_SYST 119
--- NOTE | 2021-12-10 09:00 | NUR ---
mr Sanchez has been assessed as indicated. He has been noted to be both pleasant and cooperative. he continues to deny pain. He anticipates being DC to home today.
[2021-12-10] MEDS: POTASSIUM CHLORIDE 10 MEQ TAB.PRT.SR PO SCH (09:43)
[2021-12-10] MEDS: FUROSEMIDE 40 MG TABLET PO SCH (09:43)
[2021-12-10] MEDS: TIMOLOL MALEATE 0.5% OPHTHALMIC DROPS 5 ML EACH EYE SCH (09:43)
[2021-12-10] MEDS: ISOSORBIDE DINITRATE 10 MG TABLET (ISORDIL) PO SCH (09:43)
[2021-12-10] MEDS: FOLIC ACID 1 MG TABLET PO SCH (09:43)
[2021-12-10] MEDS: PANTOPRAZOLE SODIUM 40 MG/VIAL (PROTONIX) IVP SCH (09:43)
[2021-12-10] MEDS: MULTIVITS,CA,MINERALS/IRON/FA 1 TABLET PO SCH (09:44)
--- NOTE | 2021-12-10 11:19 | NUR ---
DISCHARGE PLANNING Called Dr Saini with no answer, lt msg if stable to be off Tele & if stable for dc today. Addendum: 12/10/21 at 1136 by Karina Garcia RN Per Dr Saini gave order transfer to Med/surg loc. Plan for dc home today, coming in to see pt this afternoon.
[2021-12-10 12:00] VITALS: BP_SYST 144
[2021-12-10] MEDS ORDERED: PRO40 PO (12:56)
[2021-12-10] MEDS: SOD FERRIC GLUC COMPLEX/SUC 125 MG in NS 100 ML IV SCH (14:48)
[2021-12-10 16:59] VITALS: BP_SYST 144
--- NOTE | 2021-12-10 18:00 | NUR ---
Mr Sanchez is being DC to home. IV access has been removed from both left and right arms. DC instructions have been reviewed with mr Sanchez and his . they both express that they understood and signed a document to indicate this. His dressed him and he was escorted to the front door via WC by this publications writer. He was driven home in a private vehicle. At the time of DC he was compliant with the plan to DC home and had no s/s of distress or discomfort as he departed the building.
--- NOTE | 2021-12-13 15:21 | NUR ---
Admissions Manager LEAD PRINCIPAL TECHNICAL ARCHITECT made a Post Discharge Follow Up Phone Call to former pt. Daniel whose , Bria answered stating Daniel is doing fine. stated she has tried all day to call to make a follow up apt. with PCP. Once she gets a hold of the office to schedule this apt. she agreed to get a referral for the following as per attending doctor, Sanam d/c notes, PCP, GI, Cardioloigist and Hem/Onc. Re. HH, stating they absolutely do not need HH as she has a lot of friends and family including a Physicians assist. who come and check on them. did not have any further questions.
== END 2021-12-10 18:30 | disposition home or self-care (01) | DRG 377 ==
LOC: SED 18:05 → STU 22:43 → SMU 12-10 13:52
PROVIDERS: ADMIT Family Medicine; ATTEND Family Medicine
PROC: 30233N1 Transfusion of Nonautologous Red Blood Cells into Peripheral Vein, Percutaneous Approach (ICD-10-PCS; 2021-12-05)
PROC: 0W9G3ZZ Drainage of Peritoneal Cavity, Percutaneous Approach (ICD-10-PCS; principal; 2021-12-09)
DX: K92.2 Gastrointestinal hemorrhage, unspecified (principal); E43 Unspecified severe protein-calorie malnutrition; R18.8 Other ascites; I25.110 Atherosclerotic heart disease of native coronary artery with unstable angina pectoris; D61.818 Other pancytopenia; I50.42 Chronic combined systolic (congestive) and diastolic (congestive) heart failure; Z68.1 Body mass index [BMI] 19.9 or less, adult; D50.9 Iron deficiency anemia, unspecified; I25.5 Ischemic cardiomyopathy; K74.60 Unspecified cirrhosis of liver; D63.8 Anemia in other chronic diseases classified elsewhere; N18.9 Chronic kidney disease, unspecified; I44.30 Unspecified atrioventricular block; Z87.891 Personal history of nicotine dependence; Z95.1 Presence of aortocoronary bypass graft; I25.2 Old myocardial infarction; Z95.810 Presence of automatic (implantable) cardiac defibrillator; Z79.899 Other long term (current) drug therapy
CPT/HCPCS: 36415; 36430; 49083; 71045; 76700-TC; 80048; 80053; 80061; 80074; 81003; 82042; 82272; 82607; 82728; 82746; 82947; 82962; 83540; 83550; 83690; 83735; 83880; 84100; 84157; 84443; 84484; 85007; 85025; 85027; 85044; 85610-TC; 85730-TC; 86886; 86900; 86901; 86920; 88108; 89051-TC; 89060-TC; 93005; 93306; 96374; 97116-GP; 97530-GP; 99285; C9113; G0378; J2916; J3480; P9021; Q5106

== ENCOUNTER 2022-05-15 01:19 | Emergency (ER) | payer BC ==
[~2022-05-15] VITALS: Ht 170.2 cm; Wt 54.4 kg
[~2022-05-15 01:19] MED LIST changes: -METO2.5T6 PO; +PRO40 PO
[2022-05-15 01:25] VITALS: BP_SYST 112
[2022-05-15 02:55] LABS: BASOPHILS % (AUTO) 0.2 % (0.0-2.0); EOSINOPHILS % (AUTO) 0.4 % (0.0-4.0); HEMATOCRIT 25.3 % (36-54); LYMPHOCYTES # (AUTO) 0.2 K/uL (1.0-5.5); LYMPHOCYTES % (AUTO) 2.5 % (20.5-51.5); MEAN CORPUSCULAR HEMOGLOBIN 23 pg (27-31); MEAN CORPUSCULAR HGB CONC 32 % (32-36); MEAN CORPUSCULAR VOLUME 72 fL (79.0-98.0); MONOCYTES # (AUTO) 1.1 K/uL (0.0-1.0); MONOCYTES % (AUTO) 12.1 % (1.7-9.3); NEUTROPHILS # (AUTO) 7.6 K/uL (1.8-7.7); NEUTROPHILS % (AUTO) 84.8 % (40.0-70.0); PLATELET COUNT (AUTO) 242 K/uL (130-430); RED BLOOD CELL COUNT(AUTO) 3.52 MIL/uL (4.2-6.2); WHITE BLOOD COUNT (AUTO) 8.9 K/uL (4.8-10.8)
[2022-05-15 03:26] LABS: INR 1.3 (0.80-1.20); PROTHROMBIN TIME 13.1 SECS (9.5-12.5)
[2022-05-15 03:51] LABS: ANION GAP 8 (5-15); CALCIUM 9.8 mg/dL (8.4-11.0); CHLORIDE 100 mmol/L (98-107); CREATININE 1.72 mg/dL (0.55-1.30); GLUCOSE 115 mg/dL (70-99); TOTAL BILIRUBIN 1.3 mg/dL (0.0-1.0); UREA NITROGEN, BLOOD 48 mg/dL (8-21)
[2022-05-15 03:52] LABS: ALANINE AMINOTRANSFERASE 10 U/L (12-78); ALBUMIN 2.3 g/dL (3.4-4.8); ASPARTATE AMINOTRANSFERASE 35 U/L (10-37)
[2022-05-15] MEDS ORDERED: ACETAMINOPHEN 325 MG TABLET PO PRN (06:15)
[2022-05-15] MEDS ORDERED: MAGNESIUM SULFATE 50 ML IV PRN (06:15)
[2022-05-15] MEDS ORDERED: POTASSIUM CHLORIDE 20 MEQ TAB.PRT.SR PO PRN (06:15)
[2022-05-15] MEDS ORDERED: MORPHINE 2 MG/ML INJ. SYRINGE IVP PRN ×2 (06:15)
[2022-05-15] MEDS ORDERED: ONDANSETRON HCL 4 MG/2 ML VIAL IVP PRN (06:15)
[2022-05-15] MEDS ORDERED: DOCUSATE SODIUM 100 MG CAPSULE PO PRN (06:15)
[2022-05-15] MEDS ORDERED: MUPIROCIN 2% TOPICAL OINTMENT 22 GM NS PRN ×2 (06:15→22:00)
[2022-05-15] MEDS ORDERED: PANTOPRAZOLE SODIUM 40 MG/VIAL (PROTONIX) IVP SCH (09:00)
[2022-05-15] MEDS ORDERED: ISOSORBIDE DINITRATE 10 MG TABLET (ISORDIL) PO SCH (09:00)
[2022-05-15] MEDS ORDERED: FOLIC ACID 1 MG TABLET PO SCH (09:00)
[2022-05-15] MEDS ORDERED: FUROSEMIDE 40 MG/4 ML VIAL IVP SCH (09:00)
[2022-05-15] MEDS ORDERED: ATORVASTATIN 10 MG TABLET PO SCH (09:00)
[2022-05-15] MEDS ORDERED: TIMOLOL MALEATE 0.5% OPHTHALMIC DROPS 5 ML EACH EYE SCH (09:00)
[2022-05-15] MEDS ORDERED: PIPERACILLIN/TAZO 2.25G/DEX-IS 50 ML IV SCH (12:00)
[2022-05-15 19:48] VITALS: BP_SYST 110
[2022-05-15] MEDS ORDERED: CARVEDILOL 6.25 MG TABLET (COREG) PO SCH (21:00)
== END 2022-05-15 21:57 | disposition left against medical advice (07) ==
LOC: SED 01:19 → STU 06:07 → UNDOADMIN 06:07 → UNDODISIN 21:45 → STU 21:57
DX: J90 Pleural effusion, not elsewhere classified (principal); R18.8 Other ascites; R77.8 Other specified abnormalities of plasma proteins; R79.1 Abnormal coagulation profile; N18.9 Chronic kidney disease, unspecified; D53.9 Nutritional anemia, unspecified; I10 Essential (primary) hypertension; E78.00 Pure hypercholesterolemia, unspecified; Z79.899 Other long term (current) drug therapy; Z20.822 Contact with and (suspected) exposure to COVID-19
CPT/HCPCS: 99285; 71250; 96365; 76705; 71045; 96375; 87426; 80053; 82140; 83880; 85025; 85379; 85610; 85730; 87040; 84484; 36415; 93005; 76376; 74176; 76604; 83605; J1940; C9113; J2543; 96374; G0378